=== PATIENT | female | born 1970 ===

== ENCOUNTER 2016-08-28 09:14 | Day surgery (SDC) | payer OTHER ==
[2016-08-27 07:06] VITALS: BMI 25.9
[2016-08-28] MEDS ORDERED: HYDROmorphone 0.5 mg/0.5 ml ISec IVP PRN (13:33)
[2016-08-28] MEDS ORDERED: cefOXitin IV 1 gm in Dextrose 1 GM/50 ML BAG IVPB ONE (13:38)
[2016-08-28] MEDS ORDERED: Lactated Ringer's 500 ML IV ONE (13:38)
[2016-08-28] MEDS ORDERED: Propofol 10 mg/ml Inj (20 ML) ONE ×2 (13:38→14:03)
[2016-08-28] MEDS ORDERED: Midazolam 2 MG/2 ML VIAL ONE (13:39)
[2016-08-28] MEDS ORDERED: Strong Iodine Topical Sol. 5%-10% ONE (13:44)
[2016-08-28] MEDS ORDERED: Morphine 4 MG/ML VIAL ONE (13:58)
[2016-08-28] MEDS ORDERED: Lactated Ringer's 1,000 ML IV ONE ×2 (14:03)
--- NOTE | 2016-08-28 14:20 | PCM.SURG1 ---
Surgeon's Initial Post Op Note - Surgeon's Notes Surgeon: Dr Prado Personal Lines Agent: Tayler Melvin( Resident) Type of Anesthesia: General Endo Anesthesia Administered By: MASON Lester supervised by Dr Granger Pre-Operative Diagnosis: Severe Cervical dYSPLASIA Operative Findings: Normal sized uterus. Some lugol free area at the 3 oclock portion of the cervix extending to portion of the vaginal wall. IVF- 300ml. EBL - 3mls. Urine output- 10mls Post-Operative Diagnosis: Same as preop diagnosis Operation Performed: LEEP cone biopsy with a small sized Loop. Specimen/Specimens Removed: Cervical tissue Estimated Blood Loss: EBL {In ML}: 3 Post-Op Condition: Good Date of Surgery/Procedure: 08/28/16 Time of Surgery/Procedure: 14:21
[2016-08-29 11:58] VITALS: BP 120/70; PULSE 68; RESP 20; TEMP 97.9; O2SAT 98
--- NOTE | 2016-08-29 16:12 | OP ---
PROCEDURE DATE: 08/28/2016 PREOPERATIVE DIAGNOSIS: A 46-year-old female with severe cervical dysplasia. POSTOPERATIVE DIAGNOSIS: A 46-year-old female with severe cervical dysplasia. PROCEDURE: Loop electrocautery excision procedure cone biopsy. SURGEON: Vladislav Prado MD DITCH WORKER: Tayler darden, [facility] Resident. Assistance in this procedure was needed for exposure of tissues. [employer] Teacher remained with the surgery throughout its entire length. TYPE OF ANESTHESIA: General and endotracheal. ANESTHESIA ADMINISTERED BY: MASON Lester, supervised by Dr. Granger. FINDINGS: Normal sized uterus on the inspection of the cervix and application of Lugol's iodine. There was an area on the ectocervix at the 3 o'clock portion of the cervix that had a Lugol free area and part of it extended to the vaginal wall on that side. IV FLUID INTAKE: 300 mL. ESTIMATED BLOOD LOSS: 3 mL. URINE OUTPUT: 10 mL. COMPLICATIONS: None. DESCRIPTION OF PROCEDURE: After obtaining informed consent the patient was sent to the OR and placed in the supine position on the OR table. After adequate general anesthesia, the patient was placed in the dorsal lithotomy position. The patient was then prepped and draped in the usual sterile fashion. The urinary bladder was drained using a straight catheter with output of about 10 mL of urine. The posterior wall of the vagina was depressed using a weighted-speculum and the anterior wall was lifted with an L-shaped retractor to expose the cervix. The cervix was treated with a Lugol's iodine and allowed to dry. Using the Bovie device connected to a small sized loop. The area on the 3 o'clock and a circumferential incision involving the squamocolumnar junction of the cervix were performed. Once the procedure was completed, the bleeding surfaces of the excised portion on the cervix were treated with electrocautery to achieve hemostasis. Once hemostasis was achieved, the surfaces were also treated with some Monsel solution. All instruments and gauze used for the procedure were taken out of the vagina after the procedure. The patient was placed in a supine position and was sent to the recovery room, awake and in stable condition. All counts were correct x3. Vladislav Prado MD [facility] # [id number] GIANFRANCO
== END 2016-08-28 16:30 | disposition home or self-care (01) ==
LOC: C.SDS 09:14
PROVIDERS: ATTEND Obstetrics & Gynecology
DX: D06.9 Carcinoma in situ of cervix, unspecified (principal); Z86.19 Personal history of other infectious and parasitic diseases
CPT/HCPCS: 57522; 88305; J2250; J2270; J2704; J3010; J7120

== ENCOUNTER 2016-11-20 05:58 | Inpatient (IN) | payer OTHER ==
[2016-08-27 07:06] VITALS: BMI 25.9
--- NOTE | 2016-11-19 20:52 | CP.PCM.HP ---
History of Present Illness - History of Present Illness History of Present Illness: 46yo female reporting here today for a vaginal hysterectomy based on a diagnosis of severe cervical dysplasia. The alternative, the risks and benefits have been discussed with the patient who has opted to go for hysterectomy. Pt has verbalized understanding of the issues discussed and a consent has been obtained. Present on Admission - Present on Admission Any Indicators Present on Admission: No - Notes: Notes:: none Review of Systems - Menstruation Menstruation: Menopausal Past Patient History - Past Medical History & Family History Past Medical History?: Yes - Past Social History Smoking Status: Never Smoked - CARDIAC Hx Cardiac Disorders: No - PULMONARY Hx Respiratory Disorders: No - NEUROLOGICAL Hx Neurological Disorder: No - HEENT Hx HEENT Problems: No - RENAL Hx Chronic Kidney Disease: No - ENDOCRINE/METABOLIC Hx Endocrine Disorders: No - HEMATOLOGICAL/ONCOLOGICAL Hx Blood Disorders: No - INTEGUMENTARY Hx Dermatological Problems: No - MUSCULOSKELETAL/RHEUMATOLOGICAL Hx Musculoskeletal Disorders: No - GASTROINTESTINAL Hx Gastrointestinal Disorders: No - GENITOURINARY/GYNECOLOGICAL Hx Genitourinary Disorders: Yes Other/Comment: HX: 2016-(PER 'S NOTES)SEXUALLY TRANSMITTED DISEASE-PT.UNSURE OF NAME. HX: ABNORMAL PAP SMEAR -04/07/16-HIGH GRADE SQUAMOUS INTRAEPITHIAL LESION. HX: CERVICAL DYSPLASIA - PSYCHIATRIC Hx Psychophysiologic Disorder: No - SURGICAL HISTORY Hx Surgeries: Yes Other/Comment: HX: LIPOSUCTION. HX: LEEP CONE BIOPSY (08/28/16) - ANESTHESIA Hx Anesthesia: Yes Meds Home Medications: Home Medication List Medication Instructions Recorded Confirmed Type Docusate [Colace] 100 mg PO BID #6 cap 11/21/16 Rx Ibuprofen [Motrin Tab] 600 mg PO Q6H PRN #28 tab 11/21/16 Rx oxyCODONE/Acetaminophen [Percocet 1 tab PO Q6H PRN #20 tab 11/21/16 Rx 5/325 mg Tab] Allergies/Adverse Reactions: Allergies Allergy/AdvReac Type Severity Reaction Status Date / Time No Known Allergies Allergy Verified 08/12/16 14:58 Physical Exam - Constitutional Appears: Well - Eye Exam Eye Exam: EOMI - Respiratory Exam Respiratory Exam: Clear to Auscultation Bilateral, NORMAL BREATHING PATTERN - Cardiovascular Exam Cardiovascular Exam: REGULAR RHYTHM, RRR - GI/Abdominal Exam GI & Abdominal Exam: Normal Bowel Sounds, Soft - Neurological Exam Neurological exam: Alert, Oriented x3 Results - Labs Result Diagrams: 11/21/16 07:52 Assessment & Plan (1) Severe cervical dysplasia Status: Acute (2) Cervical intraepithelial neoplasia grade 3 Status: Acute - Assessment and Plan (Free Text) Plan: NPO IV Fluids Sequential compression devices Mefoxin 2gm IVPB before incision - Date & Time Date: 11/20/16 Time: 07:00 Decision To Admit - Pt Status Changed To: Hospital Disposition Of: Inpatient - Admit Certification Admit to Inpatient:: After my assessment, the patient will require hospitalization for at least two midnights. This is because of the severity of symptoms shown, intensity of services needed, and/or the medical risk in this patient being treated as an outpatient. - InPatient: Physician Admission Certification:: julio cesar Shanks . Bed Request Type: COMPUTER NUMERIC CONTROL SETTER Admitting Physician: Vladislav Prado
[2016-11-20] MEDS ORDERED: Midazolam 2 MG/2 ML VIAL ONE (08:02)
[2016-11-20] MEDS ORDERED: Propofol 10 mg/ml Inj (20 ML) ONE (08:02)
[2016-11-20] MEDS ORDERED: Lactated Ringer's 1,000 ML IV ONE ×2 (08:05→10:15)
[2016-11-20] MEDS ORDERED: cefOXitin IV 2 gm in Dextrose 2 GM/50 ML BAG IVPB ONE (08:23)
[2016-11-20] MEDS ORDERED: Vasopressin 20 Units/ml Inj ONE (08:31)
[2016-11-20] MEDS ORDERED: Clindamycin 2% Vaginal Cream(40 gm) ONE (08:31)
[2016-11-20] MEDS ORDERED: Sodium Chloride 0.9% 20 ML IV ONE (08:31)
[2016-11-20] MEDS ORDERED: Rocuronium 10 mg/ml (5 ml) ONE (09:32)
[2016-11-20] MEDS ORDERED: Oxycodone/Acetaminophen 5/325 mg Tab PO PRN ×3 (10:09→10:19)
[2016-11-20] MEDS ORDERED: Sodium Chloride 0.9% 1,000 ML IV SCH (10:15)
[2016-11-20] MEDS ORDERED: Neostigmine Methylsulfate 3mg/3ml Syringe IV ONE (10:16)
[2016-11-20] MEDS ORDERED: Simethicone 80 mg Chewtab PO PRN (10:21)
[2016-11-20] MEDS ORDERED: Morphine Monoject Barrel PCA 1mg/ml IV PRN ×2 (12:16→12:29)
--- NOTE | 2016-11-20 13:55 | PCM.SURG1 ---
Surgeon's Initial Post Op Note - Surgeon's Notes Surgeon: Dr Prado Deck Worker: Hazel Sutherland ( FP Resident ) Type of Anesthesia: General Endo Anesthesia Administered By: MASON Weber supervised by Dr Rico Francis Pre-Operative Diagnosis: 46yo with Severe Cervical Dysplasia Operative Findings: Atrophic vaginal mucosa, Normal sized anterverted uterus, No visible lesions seen on the cervix. IVFluid intake- 1500mls. Urine Output - 200mls of clear urine. EBL- 50mls Post-Operative Diagnosis: Same as preop diagnosis Operation Performed: Total Vaginal Hysterectomy Specimen/Specimens Removed: Uterus with Cervix Estimated Blood Loss: EBL {In ML}: 50 Post-Op Condition: Good Date of Surgery/Procedure: 11/20/16 Time of Surgery/Procedure: 13:56
[2016-11-20] MEDS: cefOXitin IV 2 gm in Dextrose 2 GM/50 ML BAG IVPB SCH (21:10)
[2016-11-21] MEDS: cefOXitin IV 2 gm in Dextrose 2 GM/50 ML BAG IVPB SCH (02:26)
[2016-11-21 08:02] LABS: HEMATOCRIT 37.2 % (34.0-47.0); MEAN CELL VOLUME 87.4 fL (81.0-99.0); MEAN CORPUSCULAR HEMOGLOBIN 30.3 pg (27.0-31.0); MEAN CORPUSCULAR HGB CONC 34.6 g/dL (33.0-37.0); MEAN PLATELET VOLUME 8.7 fL (7.2-11.7); RED CELL DISTRIBUTION WIDTH 12.8 % (11.5-14.5); WHITE BLOOD COUNT 11.8 K/uL (4.8-10.8)
[2016-11-21 08:03] VITALS: BP 92/51; PULSE 72; RESP 18; TEMP 98.6; O2SAT 96
--- NOTE | 2016-11-21 09:21 | CP.PCM.PN ---
Objective - Vital Signs/Intake and Output Vital Signs (last 24 hours): Temp Pulse Resp BP Pulse Ox 98.6 F 72 18 92/51 L 96 11/21/16 07:05 11/21/16 07:05 11/21/16 07:05 11/21/16 07:05 11/21/16 07:05 Intake and Output: 11/21/16 11/21/16 06:59 18:59 Output Total 1600 Balance -1600 - Medications Medications: Current Medications Sodium Chloride (Sodium Chloride 0.9%) 1,000 mls @ 75 mls/hr IV .[id number] ANTHONY Last Admin: 11/20/16 21:11 Dose: 75 mls/hr Ibuprofen (Motrin Tab) 600 mg PO Q4H PRN PRN Reason: Pain, Mild (1-3) Last Admin: 11/21/16 04:27 Dose: 600 mg Morphine Sulfate/Sodium Chloride (Morphine Electrical And Radio Mock Up Mechanic Monoject Barrel) 30 mg IV Q4H PRN; Protocol PRN Reason: Pain, moderate (4-7) Stop: 11/21/16 12:29 Ondansetron HCl (Zofran Inj) 4 mg IVP Q8H PRN PRN Reason: Nausea/Vomiting Last Admin: 11/20/16 21:14 Dose: 4 mg Oxycodone/Acetaminophen (Percocet 5/325 Mg Tab) 1 tab PO Q4H PRN PRN Reason: Pain, moderate (4-7) Stop: 11/23/16 10:20 Oxycodone/Acetaminophen (Percocet 5/325 Mg Tab) 2 tab PO Q4 PRN PRN Reason: Pain, severe (8-10) Stop: 11/23/16 10:10 Simethicone (Mylicon Chew Tab) 80 mg PO Q6H PRN PRN Reason: GI distress Last Admin: 11/21/16 04:28 Dose: 80 mg - Labs Labs: 11/21/16 07:52
--- NOTE | 2016-11-21 10:34 | CP.PCM.DIS ---
Provider - Provider Date of Admission: 11/20/16 10:12 Attending physician: Vladislav Prado Time Spent in preparation of Discharge (in minutes): 40 Hospital Course - Lab Results Lab Results: Most Recent Lab Values WBC 11.8 K/uL (4.8-10.8) H D 11/21/16 07:52 RBC 4.26 Mil/uL (3.80-5.20) 11/21/16 07:52 Hgb 12.9 g/dL (11.0-16.0) 11/21/16 07:52 Hct 37.2 % (34.0-47.0) 11/21/16 07:52 MCV 87.4 fL (81.0-99.0) 11/21/16 07:52 MCH 30.3 pg (27.0-31.0) 11/21/16 07:52 MCHC 34.6 g/dL (33.0-37.0) 11/21/16 07:52 RDW 12.8 % (11.5-14.5) 11/21/16 07:52 Plt Count 206 K/uL (130-400) 11/21/16 07:52 MPV 8.7 fL (7.2-11.7) 11/21/16 07:52 Blood Type O POSITIVE 11/20/16 07:08 Antibody Screen Negative 11/20/16 07:08 - Hospital Course Hospital Course: 46yo female reporting here today for a vaginal hysterectomy based on a diagnosis of severe cervical dysplasia. The alternative, the risks and benefits have been discussed with the patient who has opted to go for hysterectomy. Pt has verbalized understanding of the issues discussed and a consent has been obtained. Hospital Course: Total Vaginal Hysterectomy on 11/20/[address] Prado. Atrophic vaginal mucosa, Normal sized anterverted uterus, No visible lesions seen on the cervix. IVFluid intake- 1500mls. Urine Output -200mls of clear urine. Patient states her she has slight discomfort but otherwise is doing well. Patient has been passing gas. Patient denies fever, nausea or vomiting. Patient is hemodynamically sable to go home. Patient stable to be discharged home per Dr. Prado. Patient to continue home medications. Patient to continue new medications: Percocet every 4 hours as needed for severe pain. Motrin 600mg every 6 hours as needed for mild to moderate pain. Colace 100mg twice a day for constipation. Patient to follow up with Dr. Prado in 2 weeks. Discharge Exam - Head Exam Head Exam: ATRAUMATIC, NORMAL INSPECTION, NORMOCEPHALIC - Eye Exam Eye Exam: EOMI, Normal appearance - ENT Exam ENT Exam: Mucous Membranes Moist - Respiratory Exam Respiratory Exam: NORMAL BREATHING PATTERN - Cardiovascular Exam Cardiovascular Exam: REGULAR RHYTHM, RRR - GI/Abdominal Exam GI & Abdominal Exam: Normal Bowel Sounds, Soft. absent: Tenderness - Extremities Exam Extremities exam: normal inspection - Neurological Exam Neurological exam: Alert, Oriented x3 - Psychiatric Exam Psychiatric exam: Normal Affect, Normal Mood - Skin Skin Exam: Normal Color, Warm Discharge Plan - Discharge Medications Prescriptions: Docusate [Colace] 100 mg PO BID #6 cap Ibuprofen [Motrin Tab] 600 mg PO Q6H PRN #28 tab PRN Reason: Pain, Mild (1-3) oxyCODONE/Acetaminophen [Percocet 5/325 mg Tab] 1 tab PO Q6H PRN #20 tab PRN Reason: Pain, Moderate (4-7) - Follow Up Plan Condition: GOOD Disposition: HOME/ ROUTINE
[2016-11-21] MEDS ORDERED: Pneumococcal 23-Valent Vaccine IM ONE (11:09)
--- NOTE | 2016-11-22 02:11 | OP ---
PROCEDURE DATE: 11/20/2016 PREOPERATIVE DIAGNOSIS: A 46-year-old female with severe cervical dysplasia, cervical intraepithelial neoplasia III. POSTOPERATIVE DIAGNOSIS: A 46-year-old female with severe cervical dysplasia, cervical intraepithelial neoplasia III. PROCEDURE: Total vaginal hysterectomy SURGEON: Dr. Prado. ASSISTANTS: Dr. Duran and Dr. Shantal Avery, [facility] resident. Assistance to this procedure was needed for exposure of tissues and help in the conduct of this surgery. The assistants remained with the surgery throughout its entire length. TYPE OF ANESTHESIA: General endotracheal. ANESTHESIA ADMINISTERED BY: Halle CUEVAS, supervised by Dr. Rico ROMAN. OPERATIVE FINDINGS: Atrophic vaginal mucosa; normal size, anteverted uterus. No visible lesions were seen on the cervix. IV FLUID INTAKE: 1500 mL. URINE OUTPUT: 200 mL of clear urine. ESTIMATED BLOOD LOSS: About 50 mL. SPECIMENS: Uterus to pathology. COMPLICATIONS: None. DESCRIPTION OF PROCEDURE: The patient was seen at the preop area. The risks, benefits, indications and alternatives of the procedure were reviewed with the patient. The patient agreed to the procedure and signed the consent form. The patient was taken to the OR with IV running and pneumatic compression stockings applied to the lower extremities. General anesthesia was obtained without difficulty. The patient was placed in the dorsal lithotomy position with Mika type stirrups. The buttocks were positioned slightly over the edge of the table. Examination under anesthesia revealed the findings noted above. The patient was prepped and draped. A Avendano catheter was inserted and the bladder was emptied. A weighted speculum was placed into the vagina. The anterior and posterior lips of the cervix were grasped with double-tooth tenaculum. With outward traction applied to the tenaculum, a circumferential incision was made with the Bovie at cervicovaginal junction. The incision was carried down to the pericervical fascia allowing the cervix to separate from the vaginal mucosa. The bleeding spots were coagulated, and the posterior cul-de-sac was then entered sharply with Esteban scissors with the tip pointing to the uterus. The clear peritoneal fluid was noted. The midline posterior peritoneum was sutured to the vaginal mucosa for later identification. The weighted speculum was removed and a long Mikala speculum was inserted into the cul-de-sac. The uterosacral ligaments were clamped with a Bradley clamp, cut and suture ligated with 0 Vicryl followed with the cardinal ligaments. Significant uterine descent was noted. Then, attention was turned to entering the anterior peritoneum. With gentle downward traction on the cervix, the peritoneum was identified, picked up and sharply entered. A right angled retractor was inserted into the vesicouterine space. The uterine vessels were identified, clamped and cut. Using Vicryl 0, the pedicles were doubly ligated. The broad ligament and round ligaments were then clamped, cut and suture ligated in a similar fashion. Finally, the ovarian ligaments and the fallopian tubes were clamped, cut and doubly ligated. The uterus was removed through the vagina. The ovaries and the fallopian tubes were found to be normal. Examination of all pedicles revealed good hemostasis. The vaginal cuff angles were sutured to the uterosacral ligament. A pursestring suture using Vicryl 2-0 was used to close the peritoneum. The tacks of Vicryl 0 on the uterosacral ligaments were tied in the midportion of the incision to suspend the both. The vaginal mucosa was closed over the operated site in a longitudinal fashion using 0 Vicryl. All instruments were removed from the vagina after the procedure and their counts were correct x3. The patient was taken to the recovery room awake and in stable condition. Vladislav Prado MD GIANFRANCO
== END 2016-11-21 14:35 | disposition home or self-care (01) | DRG 359 ==
LOC: C.SDS 05:58 → C.9S 10:12 → C.6T 14:03 → UNDODISIN 11-21 13:59
PROVIDERS: ADMIT Obstetrics & Gynecology; ATTEND Obstetrics & Gynecology
PROC: 0UTC7ZZ Resection of Cervix, Via Natural or Artificial Opening (ICD-10-PCS; 2016-11-20)
PROC: 0UT97ZZ Resection of Uterus, Via Natural or Artificial Opening (ICD-10-PCS; principal; 2016-11-20 08:05)
DX: D06.9 Carcinoma in situ of cervix, unspecified (principal); K59.00 Constipation, unspecified; N85.4 Malposition of uterus

== ENCOUNTER 2017-05-22 12:54 | Emergency (ER) | payer SELFPAY ==
[2017-05-22 12:54] VITALS: BMI 25.9
[2017-05-22 13:00] VITALS: BP 122/79; PULSE 60; TEMP 97.7; O2SAT 98
[2017-05-22] MEDS ORDERED: Naproxen 550 mg Tab PO STA (13:14)
[2017-05-22] MEDS ORDERED: Naproxen 550 mg Tab PO ONE (13:19)
--- NOTE | 2017-05-22 13:56 | C.PDOC ---
History Of Present Illness 47 year old female, with no significant past medical history, presents to the emergency department complaining of sore throat associated with a nonproductive cough for x 5 days. Patient reports that last wednesday she ate some fish, and is unsure if she has a fish bone stuck in her throat. However her throat pain only started two days later. She denies fever, SOB, chest pain, nausea/vomiting , hemoptysis, ear pain. PMD: None provided. Time Seen by Provider: 05/22/17 13:00 Chief Complaint (Nursing): ENT Problem History Per: Patient History/Exam Limitations: None Onset/Duration Of Symptoms: Days (x6) Current Symptoms Are (Timing): Still Present Past Medical History Reviewed: Historical Data, Nursing Documentation, Vital Signs Vital Signs: Last Vital Signs Temp 97.7 F 05/22/17 12:58 Pulse 60 05/22/17 12:58 Resp BP 122/79 05/22/17 12:58 Pulse Ox 98 05/22/17 17:03 - Medical History PMH: No Chronic Diseases Surgical History: No Surg Hx - [facility] Procedures RESECTION OF CERVIX, VIA NATURAL OR ARTIFICIAL OPENING (11/20/16) RESECTION OF UTERUS, VIA NATURAL OR ARTIFICIAL OPENING (11/20/16) Family History: States: No Known Family Hx - Social History Hx Tobacco Use: No Hx Alcohol Use: No Hx Substance Use: No Review Of Systems Except As Marked, All Systems Reviewed And Found Negative. Constitutional: Negative for: Fever, Chills ENT: Positive for: Throat Pain. Negative for: Ear Pain, Nose Congestion Cardiovascular: Negative for: Chest Pain Respiratory: Positive for: Cough (non productive). Negative for: Shortness of Breath Gastrointestinal: Negative for: Nausea, Vomiting, Abdominal Pain Physical Exam - Physical Exam Appears: Well, Non-toxic, No Acute Distress, Other (speaking in full sentences) Skin: Normal Color, Warm, Dry, No Rash Head: Normacephalic Eye(s): bilateral: Normal Inspection Ear(s): Bilateral: Normal Nose: Normal Oral Mucosa: Moist Throat: Erythema (mildly), No Exudate (or swelling), No Other (foreign bodies) Neck: Normal, Normal ROM Lymphatic: No Adenopathy Cardiovascular: Rhythm Regular Respiratory: Normal Breath Sounds, No Accessory Muscle Use, No Rales, No Rhonchi , No Wheezing Neurological/Psych: Oriented x3 ED Course And Treatment O2 Sat by Pulse Oximetry: 98 (RA) Pulse Ox Interpretation: Normal - Other Rad soft tissue neck Xray X-Ray: Viewed By Me, Read By Radiologist Interpretation: 16:38. Soft tissue xray. FINDINGS: SOFT TISSUES: The at current study reveals a thin approximately 3.76 mm by 9.4 mm radiopaque density within the preprocedure bowl soft tissues at the level of the lower C4 segment which could conceivably represent a small radiopaque fishbone. CERVICAL SPINE: Minor multilevel degenerative spondylosis. OTHER FINDINGS: None. IMPRESSION : There is a tiny cylindrical/ elliptical shaped radiopaque density within the prevertebral soft tissues at approximately the lower C4 level that could conceivably represent a tiny radiopaque fishbone. Progress Note: Initial Impression: viral pharyngitis. Plan: Patient given PO Naprosyn and Xray of Neck Soft tissue ordered and reviewed. Xray of soft tissue negative for foreign body. Reassured patient that her symptoms are likele due to viral URI. She was given Rxs for Naprosyn and chloraseptic spray , and instructed to follow up with PMD/clinic in 1-2 days, and with ENT within 1 week if symptoms persist. Reevaluation Time: 13:55 Reassessment Condition: Improved Disposition Counseled Patient/Family Regarding: Diagnosis, Need For Followup, Rx Given - Disposition Referrals: [facility] [Outside] Betito Anderson MD [Staff Provider] - Disposition: HOME/ ROUTINE Disposition Time: 13:55 Condition: STABLE Additional Instructions: FOLLOW UP WITH YOUR DOCTOR/CLINIC IN 1-2 DAYS IF SYMPTOMS CONTINUE SEE EAR NOSE THROAT SPECIALIST WITHIN 1 WEEK USE MEDICATIONS NEEDED RETURN TO EMERGENCY ROOM IF SYMPTOMS WORSEN SEGUIMIENTO CON CALL MDICO / CLNICA EN 1-2 RAMIREZ SI LOS SNTOMAS CONTINAN, AMPARO EL ESPECIALISTA EN [place] DE [place] EN [place]HA SEMANA USE MEDICAMENTOS SEGN SEA NECESARIO REGRESE AL BRITTNEE DE EMERGENCIA SI LOS SNTOMAS EMPEORAN Prescriptions: Naproxen 375 mg PO BID PRN #20 tablet PRN Reason: pain Phenol/Glycerin [Chloraseptic Max [place]] 1 spray MM Q6 PRN #1 spray PRN Reason: THROAT PAIN Instructions: Viral Pharyngitis (DC) Forms: [facility] (Frisian) Print Language: TAJIK - POA Present On Arrival: None - Clinical Impression Clinical Impression: Acute viral pharyngitis - Scribe Statement The provider has reviewed the documentation as recorded by the Yovanny Choudhury Provider Attestation: All medical record entries made by the Yovanny were at my direction and personally dictated by me. I have reviewed the chart and agree that the record accurately reflects my personal performance of the history, physical exam, medical decision making, and the department course for this patient. I have also personally directed, reviewed, and agree with the discharge instructions and disposition.
--- NOTE | 2017-05-22 16:39 | RAD ---
PROCEDURE: Radiographs of the neck (soft tissue). HISTORY: Throat pain. Rule out fishbone. COMPARISON: None. TECHNIQUE: Frontal and Lateral Radiographs of the neck, optimized for soft tissue visualization. FINDINGS: SOFT TISSUES: The at current study reveals a thin approximately 3.76 mm by 9.4 mm radiopaque density within the preprocedure bowl soft tissues at the level of the lower C4 segment which could conceivably represent a small radiopaque fishbone CERVICAL SPINE: Minor multilevel degenerative spondylosis. OTHER FINDINGS: None. IMPRESSION: There is a tiny cylindrical/ elliptical shaped radiopaque density within the prevertebral soft tissues at approximately the lower C4 level that could conceivably represent a tiny radiopaque fishbone.
== END 2017-05-22 14:03 | disposition home or self-care (01) ==
LOC: C.ER 12:54
DX: J02.8 Acute pharyngitis due to other specified organisms (principal)

== ENCOUNTER 2018-03-15 22:19 | Emergency (ER) | payer SELFPAY ==
[2018-03-15 22:20] VITALS: BMI 25.9
[2018-03-15] MEDS ORDERED: Sodium Chloride 0.9% 1,000 ML IV ONE (23:11)
--- NOTE | 2018-03-15 23:11 | C.PDOC ---
History Of Present Illness Patient presents to the ER with a complaint of sharp stabbing diffuse abdominal pain, nausea and vomiting that began around 1700, after eating. Denies urinary symptoms or decreased PO intake. Time Seen by Provider: 03/15/18 23:10 Chief Complaint (Nursing): Abdominal Pain History Per: Patient History/Exam Limitations: no limitations Onset/Duration Of Symptoms: Hrs Current Symptoms Are (Timing): Still Present Severity: Moderate Pain Scale Rating Of: 4 Location Of Pain/Discomfort: Diffuse Radiation Of Pain To:: None Quality Of Discomfort: Sharp, Stabbing Associated Symptoms: Nausea, Vomiting. denies: Loss Of Appetite, Urinary S ymptoms Exacerbating Factors: None Alleviating Factors: None Recent travel outside of the [place]: No Abnormal Vaginal Bleeding: No Past Medical History Reviewed: Historical Data, Nursing Documentation, Vital Signs Vital Signs: Last Vital Signs Temp 98 F 03/15/18 22:32 Pulse 68 03/15/18 22:32 Resp 19 03/15/18 22:32 BP 121/70 03/15/18 22:32 Pulse Ox 97 03/15/18 22:32 - Medical History PMH: Denies: Chronic Kidney Disease - [facility] Procedures RESECTION OF CERVIX, VIA NATURAL OR ARTIFICIAL OPENING (11/20/16) RESECTION OF UTERUS, VIA NATURAL OR ARTIFICIAL OPENING (11/20/16) Family History: States: No Known Family Hx - Social History Hx Tobacco Use: No Hx Alcohol Use: No Hx Substance Use: No Review Of Systems Constitutional: Negative for: Fever, Chills Cardiovascular: Negative for: Chest Pain, Palpitations Respiratory: Negative for: Cough, Shortness of Breath Gastrointestinal: Positive for: Nausea, Vomiting, Abdominal Pain Genitourinary: Negative for: Dysuria, Frequency, Hematuria Neurological: Negative for: Weakness, Numbness Physical Exam - Physical Exam Appears: Non-toxic Skin: Warm, Dry Head: Normacephalic Oral Mucosa: Moist Neck: Trachea Midline, Supple Chest: Symmetrical, No Tenderness Cardiovascular: Rhythm Regular Respiratory: No Rales, No Rhonchi, No Wheezing Gastrointestinal/Abdominal: Soft, No Tenderness Back: No CVA Tenderness Neurological/Psych: Oriented x3 ED Course And Treatment - Laboratory Results Result Diagrams: 03/15/18 23:24 03/15/18 23:24 O2 Sat by Pulse Oximetry: 97 (Room air) Pulse Ox Interpretation: Normal Progress Note: Blood work and urinalysis ordered. Pepcid, IV fluids, toradol, and zofran administered. Medical Decision Making Medical Decision Making: Upon provider reevaluation patient is feeling better, is medically stable, and requires no further treatment in the ED at this time. Patient will be discharged home with Rx for zofran . Counseling was provided and all questions were answered regarding diagnosis and need for follow up with the referred clinic. There is agreement to discharge plan. Return if symptoms persist or worsen. Disposition Counseled Patient/Family Regarding: Studies Performed, Diagnosis, Need For Followup, Rx Given - Disposition Referrals: [facility] [Outside] Disposition: HOME/ ROUTINE Disposition Time: 23:11 Condition: FAIR Additional Instructions: Please return if symptoms recur Prescriptions: Ondansetron ODT [Zofran ODT] 1 odt PO BID PRN #6 odt PRN Reason: Nausea/Vomiting Instructions: Acute Abdomen (Belly Pain), Adult (DC), Nausea and Vomiting, Adult (DC) Forms: [employer] (Guatemalan) - Clinical Impression Clinical Impression: Abdominal pain, Nausea, Vomiting - Scribe Statement The provider has reviewed the documentation as recorded by the Scribe Andrea Riley All medical record entries made by the Scribe were at my direction and persona karriey dictated by me. I have reviewed the chart and agree that the record accurately reflects my personal performance of the history, physical exam, medical decision making, and the department course for this patient. I have also personally directed, reviewed, and agree with the discharge instructions and disposition.
[2018-03-15] MEDS ORDERED: Sodium Chloride 0.9% 1,000 ML ONE (23:17)
[2018-03-15 23:26] LABS: BASO % 0.2 % (0.0-2.0); EOS # 0.1 K/uL (0.0-0.7); EOS % 0.5 % (0.0-4.0); HEMOGLOBIN 14.1 g/dL (11.0-16.0); LYMPH # 1.4 K/uL (1.0-4.3); LYMPH % 11.5 % (20.0-40.0); MEAN CORPUSCULAR HEMOGLOBIN 30.2 pg (27.0-31.0); MEAN CORPUSCULAR HGB CONC 33.5 g/dL (33.0-37.0); MEAN PLATELET VOLUME 9.1 fL (7.2-11.7); MONO # 0.5 K/uL (0.0-0.8); MONO % 4.1 % (0.0-10.0); NEUT # 10.4 K/uL (1.8-7.0); NEUT % 83.7 % (50.0-75.0); RBC 4.67 Mil/uL (3.80-5.20); RED CELL DISTRIBUTION WIDTH 12.2 % (11.5-14.5); WHITE BLOOD COUNT 12.4 K/uL (4.8-10.8)
[2018-03-15 23:31] LABS: SQUAMOUS EPITHIAL < 1 /hpf (0-5); URINE BACTERIA OCC (<OCC); URINE BILIRUBIN NEGATIVE (NEGATIVE); URINE BLOOD 1+ (NEGATIVE); URINE CLARITY Clear (Clear); URINE COLOR Straw (YELLOW); URINE GLUCOSE (UA) NORMAL (Normal); URINE LEUKOCYTE ESTERASE TRACE Leu/uL (Negative); URINE PROTEIN NEGATIVE (NEGATIVE); URINE UROBILINOGEN NORMAL mg/dL (0.2-1.0)
[2018-03-15 23:32] LABS: HCG,QUALITATIVE URINE NEGATIVE (NEGATIVE)
[2018-03-15 23:39] LABS: ALB/GLOB RATIO 1.2 (1.0-2.1); ALBUMIN 4.4 g/dL (3.5-5.0); ALT/SGPT 19 U/L (9-52); AST/SGOT 32 U/L (14-36); BLOOD UREA NITROGEN 10 mg/dL (7-17); CALCIUM 8.6 mg/dl (8.6-10.4); GFR NON-AFRICAN AMERICAN > 60; LIPASE 62 U/L (23-300)
[2018-03-16 01:20] VITALS: TEMP 98.3
[2018-03-16 01:51] VITALS: O2SAT 97
[2018-03-16] MEDS ORDERED: Iodixanol 320 mg/ml 150 ml Bottle IV ONE (02:03)
[2018-03-16 02:16] VITALS: BP 104/65; PULSE 64; RESP 20
== END 2018-03-16 02:15 | disposition home or self-care (01) ==
LOC: C.ER 22:19
DX: R10.9 Unspecified abdominal pain (principal); R11.2 Nausea with vomiting, unspecified
CPT/HCPCS: 80053; 81001; 83690; 84703; 85025; 96361; 96374; 96375; 99285; J1885; J2405; J7030; Q9967